=== PATIENT | male | born 1935 | race Caucasian/White ===

== ENCOUNTER 2024-04-23 21:59 | Inpatient (IN) | payer MEDICARE ==
[~2024-04-23] VITALS: Ht 177.8 cm; Wt 77.1 kg
[~2024-04-23 21:59] MED LIST: ACET-2030 PO; ALBU18HF2 IH; AMLO5TAB4 PO; APIX5TAB PO; BREZTRI IH; CARB-231 EACHEYE; CHOL100062 PO; DICL100G26 TP; LATA7.5D EACHEYE; LISI20TA30 PO; METO25TA4 PO; MINE50OI TP; NICO-676 TD; ROSU20TA2 PO; TIMO5DRO35 EACHEYE
[2024-04-23] MEDS: IV NS 0.9% 500 ML BAG IV ONE (22:30)
[2024-04-23 22:31] LABS: BASOPHILS # (AUTO) 0.1 K/uL (0.0-0.2); BASOPHILS % (AUTO) 0.3 % (0.0-2.0); LYMPHOCYTES # (AUTO) 0.7 K/uL (0.8-4.8); LYMPHOCYTES % (AUTO) 2.5 % (20.0-44.0); MEAN CORPUSCULAR HEMOGLOBIN 30 PG (26.0-33.0); MEAN CORPUSCULAR HGB CONC 31 g/dl (31.0-36.0); MEAN CORPUSCULAR VOLUME 98 fL (80-96); MONOCYTES # (AUTO) 1.1 K/uL (0.1-1.30); NEUTROPHILS # (AUTO) 25.5 K/uL (1.8-8.9); NEUTROPHILS % (AUTO) 93.2 % (43.0-81.0); PLATELET COUNT (AUTO) 366 K/uL (150-450); RED CELL DISTRIBUTION WIDTH 15.9 % (11.5-15.0); WHITE BLOOD COUNT (AUTO) 27.3 K/uL (4.3-11.0)
[2024-04-23] MEDS ORDERED: ONDANSETRON HCL/PF 4 MG/2 ML VIAL ONE (22:32)
[2024-04-23 22:34] LABS: RED BLOOD CELL COUNT(AUTO) 1.84 MIL/uL (4.5-6.0)
[2024-04-23] MEDS: ONDANSETRON HCL/PF 4 MG/2 ML VIAL IVP ONE (22:35)
[2024-04-23 22:36] LABS: HEMATOCRIT 18 % (39-51); HEMOGLOBIN 5.6 g/dL (13.5-17.5)
[2024-04-23 22:43] LABS: INR 1.38 (0.91-1.10); PARTIAL THROMBOPLASTIN TIME 31.6 SEC (24.3-34.3); PROTHROMBIN TIME 14.3 SECS (9.2-11.1)
[2024-04-23 23:01] LABS: ALANINE AMINOTRANSFERASE 45 U/L (12-78); ALKALINE PHOSPHATASE 70 U/L (46-116); ASPARTATE AMINOTRANSFERASE 79 U/L (15-37); BILIRUBIN,DIRECT 0.1 mg/dL (0.0-0.2); BILIRUBIN,TOTAL 0.4 mg/dL (0.2-1.0); CALCIUM, SERUM 8.8 mg/dL (8.5-10.1); CARBON DIOXIDE 17 mmol/L (21-32); CHLORIDE 98 mmol/L (98-107); CREATININE 4.3 mg/dL (0.6-1.3); GLUCOSE 156 mg/dL (74-106); NT-PRO BNP 1199 pg/mL (0-125); SODIUM SERUM 139 mmol/L (136-145); TOTAL PROTEIN, SERUM 6.3 g/dL (6.4-8.2)
[2024-04-23 23:06] LABS: UREA NITROGEN, BLOOD 108 mg/dL (7-18)
[2024-04-23] MEDS ORDERED: PIPERACI/TAZO 3.375GM/D5W 50ML PB IV ONE (23:19)
[2024-04-23] MEDS: PIPERACILLIN /TAZOBACTAM 3.375 G in IV D5W 50 ML IV ONE (23:24)
[2024-04-23 23:42] LABS: LACTIC ACID 10.1 mmol/L (0.4-2.0)
[2024-04-23] MEDS ORDERED: PANTOPRAZOLE 40 MG VIAL ONE (23:52)
[2024-04-23] MEDS ORDERED: VANCOMYCIN 1 GM /D5W 250 ML PB IV ONE (23:52)
[2024-04-23] MEDS: PANTOPRAZOLE 80 MG in IV NS 0.9% 500 ML IV ONE (23:55)
[2024-04-23] MEDS: PANTOPRAZOLE 80 MG in IV NS 0.9% 100 ML IV ONE (23:55)
[2024-04-23] MEDS: VANCOMYCIN 1 GM in IV D5W 250 ML IV ONE (23:55)
[2024-04-23 23:59] LABS: APPEARANCE,URINE SLIGHTLY CLOUDY (CLEAR); BILIRUBIN,URINE NEGATIVE (NEGATIVE); BLOOD, URINE 1+ Ery/uL (NEGATIVE); COLOR,URINE YELLOW (YELLOW); KETONES,URINE NEGATIVE (NEGATIVE); LEUKOCYTE ESTERASE ,URINE 2+ (NEGATIVE); NITRITE, URINE NEGATIVE (NEGATIVE); PH,URINE 7.5 (5.0-8.0); PROTEIN,URINE 1+ mg/dl (NEGATIVE); UGLUCOSE NEGATIVE (NEGATIVE); UROBILINOGEN,URINE 0.2 EU/dL (0.2)
[2024-04-24] VITALS (34 sets, daily range): BP systolic 44–126; BP diastolic 14–73; TEMP 92.4–97.7; O2SAT 87–99
[2024-04-24 00:32] LABS: ADD URINE CULTURE YES; BACTERIA,URINE Many /HPF (None Seen); CALCIUM OXALATE CRYSTALS,UR Few /HPF (None Seen); COARSE GRANULAR CASTS,URINE Few /LPF (None Seen); SQUAMOUS EPITHELIAL CELL,UR None Seen /HPF (None Seen); YEAST,URINE Moderate /HPF (None Seen)
[2024-04-24 00:45] LABS: LYMPHOCYTES % (MANUAL) 7 % (16-48); MONOCYTES % (MANUAL) 3 % (0-11.0); NEUTROPHILS % (MANUAL) 90 (42-76)
[2024-04-24] MEDS ORDERED: PANTOPRAZOLE 80 MG in IV NS 0.9% 500 ML IV PRN (01:30)
[2024-04-24] MEDS ORDERED: Z GUARD REMEDY 4 OZ OINT TP PRN (01:30)
[2024-04-24] MEDS ORDERED: ONDANSETRON HCL/PF 4 MG/2 ML VIAL IVP PRN (01:30)
[2024-04-24] MEDS: NOREPINEPHRINE 8 MG in IV D5W 242 ML IV PRN (03:45)
[2024-04-24] MEDS: NOREPINEPHRINE 8MG/250ML RTU 250 ML IV ONE (03:52)
[2024-04-24] MEDS ORDERED: PROPOFOL 100 ML IV PRN (04:00)
[2024-04-24] MEDS: PROPOFOL 100 ML IV PRN (04:07)
[2024-04-24 04:41] LABS: IRON, SERUM 42 ug/dl (50-175); TOTAL IRON BINDING CAPACITY 99 ug/dl (250-450)
[2024-04-24] MEDS: PANTOPRAZOLE 40 MG VIAL ONE (04:51)
[2024-04-24 04:52] LABS: ALKALINE PHOSPHATASE 73 U/L (46-116); AMYLASE 111 U/L (25-115); BILIRUBIN,TOTAL 0.4 mg/dL (0.2-1.0); CHLORIDE 102 mmol/L (98-107); CREATININE 4.3 mg/dL (0.6-1.3); GLUCOSE 82 mg/dL (74-106); MAGNESIUM 3.5 mg/dL (1.8-2.4); NT-PRO BNP 1087 pg/mL (0-125); TOTAL PROTEIN, SERUM 4.7 g/dL (6.4-8.2)
[2024-04-24 05:25] LABS: ALANINE AMINOTRANSFERASE 1339 U/L (12-78); ASPARTATE AMINOTRANSFERASE > 1000 U/L (15-37); BILIRUBIN,DIRECT 0.1 mg/dL (0.0-0.2); CALCIUM, SERUM 8.4 mg/dL (8.5-10.1); LIPASE 116 U/L (16-77)
[2024-04-24 05:28] LABS: ALBUMIN 1.3 g/dL (3.4-5.0); CARBON DIOXIDE 6 mmol/L (21-32); POTASSIUM 7.2 mmol/L (3.5-5.1); UREA NITROGEN, BLOOD 109 mg/dL (7-18)
[2024-04-24] MEDS: PIPERACILLIN /TAZOBACTAM 4.5 G in IV NS 0.9% 100 ML IV ONE (05:41)
[2024-04-24 05:44] LABS: BASOPHILS % (AUTO) 0.2 % (0.0-2.0); EOSINOPHILS # (AUTO) 0.1 K/uL (0.0-0.7); EOSINOPHILS % (AUTO) 0.3 % (0.0-6.0); LYMPHOCYTES # (AUTO) 1.4 K/uL (0.8-4.8); LYMPHOCYTES % (AUTO) 6.7 % (20.0-44.0); MEAN CORPUSCULAR HEMOGLOBIN 32 PG (26.0-33.0); MEAN CORPUSCULAR HGB CONC 28 g/dl (31.0-36.0); MEAN CORPUSCULAR VOLUME 113 fL (80-96); MONOCYTES # (AUTO) 0.9 K/uL (0.1-1.30); MONOCYTES % (AUTO) 4.4 % (2.0-12.0); NEUTROPHILS # (AUTO) 18.2 K/uL (1.8-8.9); NEUTROPHILS % (AUTO) 88.4 % (43.0-81.0); PLATELET COUNT (AUTO) 232 K/uL (150-450); RED CELL DISTRIBUTION WIDTH 16.3 % (11.5-15.0); WHITE BLOOD COUNT (AUTO) 20.6 K/uL (4.3-11.0)
[2024-04-24 05:53] LABS: PHOSPHORUS 16.7 mg/dL (2.5-4.9)
[2024-04-24] MEDS ORDERED: VASOPRESSIN INJ 40 UNIT in IV NS 0.9% 38 ML IV PRN (06:00)
[2024-04-24 06:05] LABS: HEMOGLOBIN 4.9 g/dL (13.5-17.5); RED BLOOD CELL COUNT(AUTO) 1.54 MIL/uL (4.5-6.0)
[2024-04-24 06:07] LABS: HEMATOCRIT 17 % (39-51)
[2024-04-24] MEDS: PIPERCILLIN/TAZOBACTAM 2.25GM/D5W 50MLPB IV ONE (06:12)
[2024-04-24 06:24] LABS: BAND % (MANUAL) 3 % (0.0-5.0); LYMPHOCYTES % (MANUAL) 13 % (16-48); MONOCYTES % (MANUAL) 8 % (0-11.0); NEUTROPHILS % (MANUAL) 76 (42-76)
[2024-04-24] MEDS: CALCIUM CHLORIDE 1,000 MG/10 ML DISP.SYRIN IV STA (06:36)
[2024-04-24] MEDS: SODIUM BICARBONATE SYR 50 MEQ/50 ML DISP.SYRIN IV STA (06:36)
[2024-04-24] MEDS: DEXTROSE 50%-WATER 50 ML DISP.SYRIN IVP STA (06:44)
[2024-04-24] MEDS: INSULIN REGULAR, HUMAN 100 UNIT/ML 3 ML VIAL IV STA (06:45)
[2024-04-24] MEDS ORDERED: ATROPINE SULFATE 1 MG/10 ML DISP.SYRIN IV ONE (09:05)
[2024-04-24] MEDS: Sodium Bicarbonate 150 MEQ in IV D5W 1,000 ML IV SCH (09:26)
[2024-04-24] MEDS: PHENYLEPHRINE 100 MG in IV NS 0.9% 240 ML IV PRN (09:28)
[2024-04-24] MEDS: NOREPINEPHRINE 32 MG in IV NS 0.9% 218 ML IV PRN (10:12)
[2024-04-24] MEDS ORDERED: PIPERACILLIN /TAZOBACTAM 2.25 G in IV D5W 50 ML IV SCH (12:00)
[2024-04-24 19:56] LABS: SODIUM SERUM 143 mmol/L (136-145)
[2024-04-26] MEDS ORDERED: VANCOMYCIN 750 MG in IV D5W 250 ML IV SCH
== END 2024-04-24 13:47 | DRG 871 ==
LOC: ER 22:05 → TELE-TD 04-24 00:31 → ICU 04-24 03:22
PROVIDERS: ADMIT Nurse Practitioner Family
PROC: 5A1935Z Respiratory Ventilation, Less than 24 Consecutive Hours (ICD-10-PCS; principal; 2024-04-24)
PROC: 0BH17EZ Insertion of Endotracheal Airway into Trachea, Via Natural or Artificial Opening (ICD-10-PCS; 2024-04-24)
PROC: 30233N1 Transfusion of Nonautologous Red Blood Cells into Peripheral Vein, Percutaneous Approach (ICD-10-PCS; 2024-04-24)
PROC: 5A12012 Performance of Cardiac Output, Single, Manual (ICD-10-PCS; 2024-04-24)
DX: A41.9 Sepsis, unspecified organism (principal); J69.0 Pneumonitis due to inhalation of food and vomit; N17.0 Acute kidney failure with tubular necrosis; R65.21 Severe sepsis with septic shock; J96.00 Acute respiratory failure, unspecified whether with hypoxia or hypercapnia; E46 Unspecified protein-calorie malnutrition; E87.20 Acidosis, unspecified; N39.0 Urinary tract infection, site not specified; G93.1 Anoxic brain damage, not elsewhere classified; K92.2 Gastrointestinal hemorrhage, unspecified; I25.10 Atherosclerotic heart disease of native coronary artery without angina pectoris; I50.9 Heart failure, unspecified; I11.0 Hypertensive heart disease with heart failure; D64.9 Anemia, unspecified; E78.5 Hyperlipidemia, unspecified; E87.5 Hyperkalemia; E88.09 Other disorders of plasma-protein metabolism, not elsewhere classified; I48.91 Unspecified atrial fibrillation; I46.9 Cardiac arrest, cause unspecified; Z66 Do not resuscitate; Z79.01 Long term (current) use of anticoagulants; R53.1 Weakness; R73.9 Hyperglycemia, unspecified; Z95.828 Presence of other vascular implants and grafts; B96.89 Other specified bacterial agents as the cause of diseases classified elsewhere; Z68.24 Body mass index [BMI] 24.0-24.9, adult
CPT/HCPCS: 31720; 36415; 36600; 71045-TC; 80048-TC; 80076-TC; 81001; 82150-TC; 82803-TC; 82962-TC; 83540-TC; 83605-TC; 83690-TC; 83735-TC; 83880; 84100-TC; 84443-TC; 84484-TC; 85025-TC; 85730-TC; 86850-TC; 87040-TC; 87086-TC; 92950-TC; 94002-TC; 99082-TC; A4223; G0378; J0171; J0461; J1815; J2405; J2470; J2543; J3370; J3490; J7030; J7040; J7050; J7060; J7070; P9016